=== PATIENT | male | born 1980 | race African-American/Black ===

== ENCOUNTER 2022-05-30 16:44 | Emergency (ER) | payer SELFPAY ==
[~2022-05-30] VITALS: Ht 177.8 cm; Wt 98.0 kg
[2022-05-30] MEDS ORDERED: KETOROLAC TROMETHAMINE 30 MG/ML VIAL IV STA (17:21)
[2022-05-30] MEDS ORDERED: SODIUM CHLORIDE 0.9% 1000ML 1,000 ML IV SCH (17:30)
[2022-05-30] MEDS ORDERED: SODIUM CHLORIDE 0.9% 1000ML 1,000 ML ONE (17:36)
[2022-05-30] MEDS ORDERED: CEFUROXIME500 MG PO (19:07)
[2022-05-30] MEDS ORDERED: FLOMAX0.4 MG PO (19:08)
[2022-05-30] MEDS ORDERED: ONDANSETRON ODT4 MG PO (19:08)
[2022-05-30] MEDS ORDERED: HYDROCODON-ACE1 EA12 PO (19:09)
[2022-05-30] MEDS ORDERED: TAMSULOSIN HCL 0.4 MG CAP PO ONE (19:15)
[2022-05-30] MEDS ORDERED: CEFTRIAXONE 1 GM VIAL ONE (19:16)
== END 2022-05-30 20:01 | disposition home or self-care (01) ==
LOC: FSED 16:50
DX: R10.31 Right lower quadrant pain (principal); N13.2 Hydronephrosis with renal and ureteral calculous obstruction; N28.9 Disorder of kidney and ureter, unspecified; K57.90 Diverticulosis of intestine, part unspecified, without perforation or abscess without bleeding; I10 Essential (primary) hypertension; F17.210 Nicotine dependence, cigarettes, uncomplicated
CPT/HCPCS: 74176; 99284; J0696; J1885; J7030